=== PATIENT | male | born 1950 | race Caucasian/White ===

== ENCOUNTER 2020-05-13 13:03 | Outpatient (REF) | payer MEDICARE, OTHER, SELFPAY | END 2020-05-13 13:04 | disposition home or self-care (01) | LOC: HO.BBR 13:03 | PROVIDERS: PCP Internal Medicine; Visit Provider Internal Medicine Gastroenterology | DX: E83.110 Hereditary hemochromatosis (principal) | CPT/HCPCS: 99195 ==

== ENCOUNTER 2020-07-08 13:00 | Outpatient (REF) | payer MEDICARE, OTHER, SELFPAY | END 2020-07-08 13:01 | disposition home or self-care (01) | LOC: HO.BBR 13:00 | PROVIDERS: PCP Internal Medicine; Visit Provider Internal Medicine Gastroenterology | DX: Z13.89 Encounter for screening for other disorder (principal) ==

== ENCOUNTER 2020-07-08 13:42 | Outpatient (REF) | payer SELFPAY ==
[2020-07-08 14:42] LABS: Cholesterol 201 mg/dL
[2020-07-08 15:00] LABS: SARS COV2 IgG Negative (Negative)
== END 2020-07-08 13:43 | disposition home or self-care (01) ==
LOC: HO.LNC 13:42
PROVIDERS: Visit Provider Pathology Anatomic Pathology & Clinical Pathology
DX: Z20.828 Contact with and (suspected) exposure to other viral communicable diseases (principal)
CPT/HCPCS: 82465; 86769

== ENCOUNTER 2020-09-02 13:05 | Outpatient (REF) | payer MEDICARE, OTHER, SELFPAY | END 2020-09-02 13:06 | disposition home or self-care (01) | LOC: HO.BBR 13:05 | PROVIDERS: Visit Provider Internal Medicine Gastroenterology | DX: Z13.89 Encounter for screening for other disorder (principal) ==

== ENCOUNTER 2020-09-02 13:51 | Outpatient (REF) | payer SELFPAY ==
[2020-09-02 14:37] LABS: Cholesterol 186 mg/dL
== END 2020-09-02 13:52 | disposition home or self-care (01) ==
LOC: HO.LNC 13:51
PROVIDERS: Visit Provider Pathology Anatomic Pathology & Clinical Pathology
DX: Z13.89 Encounter for screening for other disorder (principal)
CPT/HCPCS: 36415; 82465

== ENCOUNTER 2020-10-28 13:01 | Outpatient (REF) | payer MEDICARE, OTHER, SELFPAY | END 2020-10-28 13:02 | disposition home or self-care (01) | LOC: HO.BBR 13:01 | PROVIDERS: PCP Internal Medicine; Visit Provider Internal Medicine Gastroenterology | DX: Z13.89 Encounter for screening for other disorder (principal) ==

== ENCOUNTER 2020-12-23 12:57 | Outpatient (REF) | payer MEDICARE, OTHER, SELFPAY | END 2020-12-23 12:58 | disposition home or self-care (01) | LOC: HO.BBR 12:57 | PROVIDERS: Visit Provider Internal Medicine Gastroenterology | DX: Z13.89 Encounter for screening for other disorder (principal) ==

== ENCOUNTER 2021-02-17 12:48 | Outpatient (REF) | payer MEDICARE, OTHER, SELFPAY | END 2021-02-17 12:49 | disposition home or self-care (01) | LOC: HO.BBR 12:48 | PROVIDERS: PCP Internal Medicine; Visit Provider Internal Medicine Gastroenterology | DX: Z13.89 Encounter for screening for other disorder (principal) ==

== ENCOUNTER 2021-04-15 12:10 | Outpatient (REF) | payer MEDICARE, OTHER, SELFPAY | END 2021-04-15 12:11 | disposition home or self-care (01) | LOC: HO.BBR 12:10 | PROVIDERS: Visit Provider Internal Medicine Gastroenterology | DX: Z13.89 Encounter for screening for other disorder (principal) ==

== ENCOUNTER 2021-06-10 12:03 | Outpatient (REF) | payer MEDICARE, OTHER, SELFPAY | END 2021-06-10 12:04 | disposition home or self-care (01) | LOC: HO.BBR 12:03 | PROVIDERS: PCP Internal Medicine; Visit Provider Internal Medicine Gastroenterology | DX: Z13.89 Encounter for screening for other disorder (principal) ==

== ENCOUNTER 2021-08-05 12:51 | Outpatient (REF) | payer MEDICARE, OTHER, SELFPAY | END 2021-08-05 12:52 | disposition home or self-care (01) | LOC: HO.BBR 12:51 | PROVIDERS: Visit Provider Internal Medicine Gastroenterology | DX: Z13.89 Encounter for screening for other disorder (principal) ==

== ENCOUNTER 2021-09-30 13:01 | Outpatient (REF) | payer MEDICARE, OTHER, SELFPAY | END 2021-09-30 13:02 | disposition home or self-care (01) | LOC: HO.BBR 13:01 | PROVIDERS: Visit Provider Internal Medicine Gastroenterology | DX: Z13.89 Encounter for screening for other disorder (principal) ==

== ENCOUNTER 2021-11-26 11:48 | Outpatient (REF) | payer MEDICARE, OTHER, SELFPAY | END 2021-11-26 11:49 | disposition home or self-care (01) | LOC: HO.BBR 11:48 | PROVIDERS: Visit Provider Internal Medicine Gastroenterology | DX: Z13.89 Encounter for screening for other disorder (principal) ==

== ENCOUNTER 2022-01-22 12:05 | Outpatient (REF) | payer MEDICARE, OTHER, SELFPAY | END 2022-01-22 12:06 | disposition home or self-care (01) | LOC: HO.BBR 12:05 | PROVIDERS: Visit Provider Internal Medicine Gastroenterology | DX: Z13.89 Encounter for screening for other disorder (principal) ==

== ENCOUNTER 2022-03-19 13:03 | Outpatient (REF) | payer MEDICARE, OTHER, SELFPAY | END 2022-03-19 13:04 | disposition home or self-care (01) | LOC: HO.BBR 13:03 | PROVIDERS: Visit Provider Internal Medicine Gastroenterology | DX: Z13.89 Encounter for screening for other disorder (principal) ==

== ENCOUNTER 2022-05-14 13:02 | Outpatient (REF) | payer MEDICARE, OTHER, SELFPAY | END 2022-05-14 13:03 | disposition home or self-care (01) | LOC: HO.BBR 13:02 | PROVIDERS: Visit Provider Internal Medicine Gastroenterology | DX: Z13.89 Encounter for screening for other disorder (principal) ==

== ENCOUNTER 2022-07-17 12:47 | Outpatient (REF) | payer MEDICARE, OTHER, SELFPAY | END 2022-07-17 12:48 | disposition home or self-care (01) | LOC: HO.BBR 12:47 | PROVIDERS: Visit Provider Internal Medicine Gastroenterology | DX: Z13.89 Encounter for screening for other disorder (principal) ==

== ENCOUNTER 2022-09-11 13:04 | Outpatient (REF) | payer MEDICARE, OTHER, SELFPAY | END 2022-09-11 13:05 | disposition home or self-care (01) | LOC: HO.BBR 13:04 | PROVIDERS: Visit Provider Internal Medicine Gastroenterology | DX: Z13.89 Encounter for screening for other disorder (principal) ==

== ENCOUNTER 2022-11-06 12:53 | Outpatient (REF) | payer MEDICARE, OTHER, SELFPAY | END 2022-11-06 12:54 | disposition home or self-care (01) | LOC: HO.BBR 12:53 | PROVIDERS: Visit Provider Internal Medicine Gastroenterology | DX: Z13.89 Encounter for screening for other disorder (principal) ==

== ENCOUNTER 2023-01-11 13:03 | Outpatient (REF) | payer MEDICARE, OTHER, SELFPAY | END 2023-01-11 13:04 | disposition home or self-care (01) | LOC: HO.BBR 13:03 | PROVIDERS: Visit Provider Internal Medicine Gastroenterology | DX: Z13.89 Encounter for screening for other disorder (principal) ==

== ENCOUNTER 2023-03-08 13:04 | Outpatient (REF) | payer MEDICARE, OTHER, SELFPAY | END 2023-03-08 13:05 | disposition home or self-care (01) | LOC: HO.BBR 13:04 | PROVIDERS: Visit Provider Internal Medicine Gastroenterology | DX: Z13.89 Encounter for screening for other disorder (principal) ==

== ENCOUNTER 2023-05-03 12:53 | Outpatient (REF) | payer MEDICARE, OTHER, SELFPAY | END 2023-05-03 12:54 | disposition home or self-care (01) | LOC: HO.BBR 12:53 | PROVIDERS: PCP Internal Medicine; Visit Provider Internal Medicine Gastroenterology | DX: Z13.89 Encounter for screening for other disorder (principal) ==

== ENCOUNTER 2023-06-28 13:20 | Outpatient (REF) | payer MEDICARE, OTHER, SELFPAY | END 2023-06-28 13:21 | disposition home or self-care (01) | LOC: HO.BBR 13:20 | PROVIDERS: PCP Internal Medicine; Visit Provider Internal Medicine Gastroenterology | DX: Z13.89 Encounter for screening for other disorder (principal) ==

== ENCOUNTER 2023-08-31 10:05 | Outpatient (REF) | payer MEDICARE, OTHER, SELFPAY | END 2023-08-31 10:06 | disposition home or self-care (01) | LOC: HO.BBR 10:05 | PROVIDERS: PCP Internal Medicine; Visit Provider Internal Medicine Gastroenterology | DX: Z13.89 Encounter for screening for other disorder (principal) ==

== ENCOUNTER 2023-10-26 12:48 | Outpatient (REF) | payer MEDICARE, OTHER, SELFPAY | END 2023-10-26 12:49 | disposition home or self-care (01) | LOC: HO.BBR 12:48 | PROVIDERS: PCP Internal Medicine; Visit Provider Internal Medicine Gastroenterology | DX: Z13.89 Encounter for screening for other disorder (principal) ==

== ENCOUNTER 2023-12-21 12:49 | Outpatient (REF) | payer MEDICARE, OTHER, SELFPAY | END 2023-12-21 12:50 | disposition home or self-care (01) | LOC: HO.BBR 12:49 | PROVIDERS: PCP Internal Medicine; Visit Provider Internal Medicine Gastroenterology | DX: Z13.89 Encounter for screening for other disorder (principal) ==

== ENCOUNTER 2024-02-15 12:55 | Outpatient (REF) | payer MEDICARE, OTHER, SELFPAY | END 2024-02-15 12:56 | disposition home or self-care (01) | LOC: HO.BBR 12:55 | PROVIDERS: PCP Internal Medicine; Visit Provider Internal Medicine Gastroenterology | DX: Z13.89 Encounter for screening for other disorder (principal) ==

== ENCOUNTER 2024-04-18 13:16 | Outpatient (REF) | payer MEDICARE, OTHER, SELFPAY | END 2024-04-18 13:17 | disposition home or self-care (01) | LOC: HO.BBR 13:16 | PROVIDERS: PCP Internal Medicine; Visit Provider Internal Medicine Gastroenterology | DX: Z13.89 Encounter for screening for other disorder (principal) ==

== ENCOUNTER 2024-06-13 12:56 | Outpatient (REF) | payer MEDICARE, OTHER, SELFPAY | END 2024-06-13 12:57 | disposition home or self-care (01) | LOC: HO.BBR 12:56 | PROVIDERS: PCP Internal Medicine; Visit Provider Internal Medicine Gastroenterology | DX: Z13.89 Encounter for screening for other disorder (principal) ==

== ENCOUNTER 2024-08-08 12:53 | Outpatient (REF) | payer MEDICARE, OTHER, SELFPAY | END 2024-08-08 12:54 | disposition home or self-care (01) | LOC: HO.BBR 12:53 | PROVIDERS: PCP Internal Medicine; Visit Provider Internal Medicine Gastroenterology | DX: Z13.89 Encounter for screening for other disorder (principal) ==

== ENCOUNTER 2024-10-03 13:11 | Outpatient (REF) | payer MEDICARE, OTHER, SELFPAY ==
--- OUTSIDE RECORDS SUMMARY | 2024-10-03 16:08 | XMS_ITS | Encounter Summary ---
Author Organization [facility] Address [address] [place] [address] Care Team Providers Care Soft Boarder Name Role Phone Tomy Bass MD Primary Care Provider [phone] Reason for Visit * Reason Comments Follow-up Encounter Details Date Type Department Care Team (Latest Contact Info) Description 09/12/2024 10:00 AM EST Office Visit Gastroenterology - [address] [phone] Gerald Chen MD [address] [address] Hereditary hemochromatosis (CMS/HCC) (Primary Dx); Inflammatory bowel diseases (IBD) Social History Tobacco Use Types Packs/Day Years Used Date Smoking Tobacco: Never Assessed Sex and Gender Information Value Date Recorded Sex Assigned at Not on file Legal Sex Male 2:45 AM EST Gender Identity Not on file Sexual Orientation Not on file documented as of this encounter Last Filed Vital Signs Vital Sign Reading Time Taken Comments Blood Pressure - - Pulse - - Temperature - - Respiratory Rate - - Oxygen Saturation - - Inhaled Oxygen Concentration - - Weight 87.1 kg (192 lb) 09/12/2024 10:02 AM EST Height 170.2 cm (5' 7 ) 09/12/2024 10:02 AM EST Body Mass Index 30.07 09/12/2024 10:02 AM EST documented in this encounter Progress Notes * Gerald Chen MD - 09/12/2024 10:00 AM EST PROGRESS NOTE Subjective Patient ID: Amaury Patton is a 74 y.o. male. No chief complaint on file. HPI History of Present Illness The patient is a 74-year-old male with a history of hemochromatosis, ulcerative colitis, skin cancer, and fluctuating PSA levels, presenting for a follow-up visit. Hemochromatosis - Undergoes periodic phlebotomies every 8 weeks - Last phlebotomy was on 06/13/2024 - Recent blood work showed an iron saturation of 32 and a hemoglobin level of 15 Ulcerative Colitis - Undergoes periodic colonoscopies - Last colonoscopy was in 07/2022 - Another colonoscopy discussed for 07/2025 due to longstanding history of colitis - Family history of colon cancer (mother, but in her 80's)) - Biopsies in 07/2022 were negative for colitis - Reports no current bleeding and no bleeding during biopsy procedures Skin Cancer - Sees Dr. Landaverde for this condition - Recently had a body scan and cosmetic procedures on his knees Fluctuating PSA Levels - Third biopsy in 06/2024 - Followed up with Dr. Lo at [facility] - Borderline between active surveillance and intervention - Presented with options: radiation therapy or prostate removal - Concerned about potential side effects of radiation therapy, particularly its impact on the anus - Informed about protective measures for the anus, but effectiveness is uncertain - Surgeon and Dr. Monge indicated condition cannot be resolved - If undecided, Dr. Lo will make the decision - Apprehensive about undergoing radiation therapy - MRI results unchanged from the previous year - Upcoming appointment with Dr. Mario Alberto Castañeda at the [facility] to discuss radiation therapy Supplemental information: He saw Dr. Monge on , who did blood work. He went to the dentist for his annual check-up. He sees Dr. Monge twice a year and will see him again in 3 months because he just started taking atorvastatin. He was told that he has a 21% chance of getting a heart attack someday according to his cholesterol. He was put on atorvastatin. His glucose is 88. FAMILY HISTORY - Mother of colon cancer at age 86 - Brother had colon cancer MEDICATIONS - Atorvastatin (current) IMMUNIZATIONS He has been vaccinated for type A and B hepatitis. Results Laboratory Studies Iron saturation was 78 and ferritin was 59 in August 2023. LFTs were completely normal. Hemoglobinwas 15. Glucose is 88. Testing Biopsies throughout colon were negative for any colitis in 07/2022. Social History Socioeconomic History Marital status: Single Spouse name: Not on file Number of children: Not on file Years of education: Not on file Highest education level: Not on file Occupational History Not on file Tobacco Use Smoking status: Not on file Smokeless tobacco: Not on file Substance and Sexual Activity Alcohol use: Not on file Drug use: Not on file Sexual activity: Not on file Other Topics Concern Not on file Social History Narrative Not on file No past medical history on file. No past surgical history on file. Review of Systems Objective Physical Exam Assessment/Plan Assessment & Plan Hemochromatosis: - Undergoing periodic phlebotomies every 8 weeks - Last iron studies (August 2023): saturation 78, ferritin 59, normal LFTs - Continue current phlebotomy schedule - Re-evaluate iron levels in 6 months to prevent potential anemia Ulcerative colitis: - Periodic colonoscopies, last in July 2022 showing no signs of colitis - Family history of colon cancer - Colonoscopy rescheduled to July 2025 based on new guidelines - Pre-radiation examination if opting for radiation therapy to assess for inflammation Prostate cancer: - Borderline between active surveillance and intervention - Options: radiation therapy or prostate removal - Discussed concerns: radiation proctitis, surgical risks (impotence, urinary dribbling) - Will consult with radiologist and surgeon to make an informed decision Hyperlipidemia: - Prescribed atorvastatin to lower cholesterol and reduce risk of heart attack and stroke - Reports no significant side effects Skin cancer: - History of skin cancer - Continues regular check-ups and treatments with Dr. Landaverde PROCEDURE Colonoscopy in 07/2022 with biopsies throughout the colon was negative for any colitis. Last Recorded Vitals: There were no vitals taken for this visit. Labs: No results found for: WBC , HGB , HCT , MCV , PLT No results found for: NA , K , CL , CO2 , BUN , CREATININE , CALCIUM , PROT , BILITOT , ALKPHOS , ALT , AST , GLUCOSE No results found for: WOUNDCX , BLOODCX , URINECX , CSFCX , AFBCX , MRSA Pertinent new radiology results/studies: No image results found. MEDICATIONS: Current Hospital Medications: No current outpatient medications on file. Home Medications: He is not on any long-term medications. There is no problem list on file for this patient. Gerald Chen MD 12:54 PM EST documented in this encounter Plan of Treatment Upcoming Encounters Date Type Department Care Team (Latest Contact Info) Description 12/11/2024 7:30 AM EDT Hospital Encounter [facility] OR [address] [place] [phone] Jeff Jovel MD [address] [place] [address] [place] [phone] 12/11/2024 7:30 AM EDT - 12/11/2024 11:30 AM EDT Surgery [facility] OR [address] [place] [phone] Jeff Jovel MD [address] [place] [address] DAVINCI ASSISTED LAPAROSCOPIC PROSTATECTOMY, ?BILATERAL PELVIC LYMPH NODE DISSECTION [38607 (CPT??)] Scheduled Orders Name Type Priority Associated Diagnoses Orde r Schedule CBC and differential Lab Routine Hereditary hemochromatosis (CMS/HCC) Expected: 03/12/2025, Expires: 09/12/2025 Iron and TIBC Lab Routine Hereditary hemochromatosis (CMS/HCC) Expected: 03/12/2025, Expires: 09/12/2025 Ferritin Lab Routine Hereditary hemochromatosis (CMS/HCC) Expected: 03/12/2025, Expires: 09/12/2025 Scheduled Procedures Name Priority Associated Diagnoses Date/Ti me PROSTATECTOMY ROBOT Malignant neoplasm of prostate (CMS/HCC) 12/11/2024 7:30 AM EDT documented as of this encounter Visit Diagnoses Diagnosis Hereditary hemochromatosis (CMS/HCC)- Primary Hereditary hemochromatosis Inflammatory bowel diseases (IBD) Malignant neoplasm of prostate (CMS/HCC) Malignant neoplasm of prostate documented in this encounter Historical Medications * This list may reflect changes made after this encounter. desonide (DESOWEN) 0.05 % cream APPLY SPARINGLY TWICE A DAY FOR DERMATITIS ON NECK 12/04/2023 losartan (COZAAR) 50 mg tablet Take 1 tablet (50 mg total) by mouth 1 (one) time each day. for 90 days 07/18/2024 hydrocortisone (ANUSOL-HC) 25 mg suppository INSERT 1 SUPPOSITORY INTO RECTUM TWICE A DAY DIRECTED 10/11/2023 timolol (TIMOPTIC) 0.5 % ophthalmic solution INSTILL 1 DROP INTO BOTH EYES EVERY MORNING 07/10/2024 mometasone (ELOCON) 0.1 % topical solution APPLY TO AFFECTED AREAS DIRECTED 01/12/2024 ciprofloxacin (CIPRO) 500 mg tablet TAKE 1 TABLET BY MOUTH 1 HOUR BEFORE PROCEDURE & 1 TAB 10 HOURS AFTER 07/20/2024 atorvastatin (LIPITOR) 10 mg tablet Take 1 tablet (10 mg total) by mouth 1 (one) time each day. for 90 days 09/08/2024 added in this encounter Care Teams Soft Boarder Relationship Specialty Start Date End Date Tomy Bass MD [address] [place] [address] PCP - General Internal Medicine 06/07/24 documented as of this encounter
--- OUTSIDE RECORDS SUMMARY | 2024-10-03 16:09 | XMS_ITS | Encounter Summary ---
Author Organization [facility] Address [address] [place] [address] Care Team Providers Care Channel Machine Operator Name Role Phone Tomy Bass MD Primary Care Provider Encounter Details Date Type Department Care Team (Late st Contact Info) Description 07/31/2024 Lab Requisition [facility] [address] [facility] [place] [phone] Levon Guerra MD [address] [phone] Malignant neoplasm of prostate (CMS/HCC) Social History Tobacco Use Types Packs/Day Years Used Date Smoking Tobacco: Never Assessed Sex and Gender Information Value Date Recorded Sex Assigned at Not on file Legal Sex Male 2:45 AM EST Gender Identity Not on file Sexual Orientation Not on file documented as of this encounter Plan of Treatment Upcoming Encounters Date Type Department Care Team (Latest Contact Info) Description 12/11/2024 7:30 AM EDT Hospital Encounter [facility] OR [address] [place] [phone] Jeff Jovel MD [address] [place] [address] [place] [phone] 12/11/2024 7:30 AM EDT - 12/11/2024 11:30 AM EDT Surgery [facility] OR [address] [place] [phone] Jeff Jovel MD [address] [place] [address] [place] [address] DAVINCI ASSISTED LAPAROSCOPIC PROSTATECTOMY, ?BILATERAL PELVIC LYMPH NODE DISSECTION [55387 (CPT??)] Scheduled Procedures Name Priority Associated Diagnoses Date/Ti me PROSTATECTOMY ROBOT Malignant neoplasm of prostate (CMS/HCC) 12/11/2024 7:30 AM EDT documented as of this encounter Procedures Procedure Name Priority Date/Time Associated Diagnosis Comments AP OUTSIDE CONSULT Routine 07/28/2024 Malignant neoplasm of prostate (CMS/HCC) documented in this encounter Results * Anatomic pathology outside consult (07/28/2024) Final Diagnosis A. Prostate, Left Middle [place] (Core Biopsy): -PROSTATIC ACINAR ADENOCARCINOMA -Landon Score: (3 + 3) = 6, Grade Group 1 Percent of Prostatic Tissue Continuously Involved by Tumor: 15% B. Prostate, Left Lateral [place] (Core Biopsy): - Benign prostate tissue. C. Prostate, Left Middle Middle (Core Biopsy): - Benign prostate tissue. D. Prostate, Left Lateral Middle (Core Biopsy): - Benign prostate tissue. E. Prostate, Left Middle Base (Core Biopsy): - Benign prostate tissue. F. Prostate, Left Lateral Base (Core Biopsy): - Benign prostate tissue. G. Prostate, Right Middle [place] (Core Biopsy): -PROSTATIC ACINAR ADENOCARCINOMA -Dumas Score: (3 + 4) = 7, Grade Group 2 -Percentage Pattern: 4:10% Percent of Prostatic Tissue Continuously Involved by Tumor: 25% H. Prostate, Right Lateral [place] (Core Biopsy): - Benign prostate tissue. I. Prostate, Right Middle Middle (Core Biopsy): -PROSTATIC ACINAR ADENOCARCINOMA -Landon Score: (3 + 4) = 7, Grade Group 2 -Percentage Pattern: 4:5% Percent of Prostatic Tissue Continuously Involved by Tumor: 75% J. Prostate, Right Lateral Middle (Core Biopsy): -PROSTATIC ACINAR ADENOCARCINOMA -Dumas Score: (3 + 4) = 7, Grade Group 2 -Percentage Pattern: 4:10% Percent of Prostatic Tissue Discontinuously Involved by Tumor: 55% K. Prostate, Right Middle Base (Core Biopsy): - Benign prostate tissue. L. Prostate, Right Lateral Base (Core Biopsy): - Benign prostate tissue. M. Prostate, MPZ Lesion #1 (Core Biopsy): - Benign prostate tissue. N. Prostate, MPZ Lesion #2 (Core Biopsy): - Benign prostate tissue. 08/03/2024 11:37 AM [facility] Clinical Information Elevated PSA = 11.5 (07/10/2024) [id number] 08/03/2024 11:37 AM [facility] Gross Description A. Prostate, Left Middle [place] Biopsy: Received, properly labeled, are two H and E stained slides and two unstained slides. B. Prostate, Left Lateral [place] Biopsy: Received, properly labeled, are two H and E stained slides and two unstained slides. C. Prostate, Left Middle Middle Biopsy: Received, properly labeled, are two H and E stained slides and two unstained slides. D. Prostate, Left Lateral Middle Biopsy: Received, properly labeled, are two H and E stained slides and two unstained slides. E. Prostate, Left Middle Base Biopsy: Received, properly labeled, are two H and E stained slides and two unstained slides. F. Prostate, Left Lateral Base Biopsy: Received, properly labeled, are two H and E stained slides and two unstained slides. G. Prostate, Right Middle [place] Biopsy: Received, properly labeled, are two H and E stained slides and two unstained slides. H. Prostate, Right Lateral [place] Biopsy: Received, properly labeled, are two H and E stained slides and two unstained slides. I. Prostate, Right Middle Middle Biopsy: Received, properly labeled, are two H and E stained slides and two unstained slides. J. Prostate, Right Lateral Middle Biopsy: Received, properly labeled, are two H and E stained slides and two unstained slides. K. Prostate, Right Middle Base Biopsy: Received, properly labeled, are two H and E stained slides and two unstained slides. L. Prostate, Right Lateral Base Biopsy: Received, properly labeled, are two H and E stained slides and two unstained slides. M. Prostate, MPZ Lesion #1 Biopsy: Received, properly labeled, are two H and E stained slides and two unstained slides. N. Prostate, MPZ Lesion #2 Biopsy: Received, properly labeled, are two H and E stained slides and two unstained slides. /al 08/03/2024 11:37 AM EST [facility] Disclaimer Unless otherwise specified, all tissue is 10% NB formalin fixed and paraffin embedded. Technical pathology services provided by [facility] [address] [facility] [address] [place] [address] (CLIA #[id number]/Blanca Hoyt MD, Copra Sampler) 08/03/2024 11:37 AM EST [facility] Tissue Prostatic structure / Unknown 07/28/2024 07/31/2024 4:36 PM EST Tissue specimen (specimen) Prostatic structure / Unknown 07/28/2024 07/31/2024 4:36 PM EST Tissue specimen (specimen) Prostatic structure / Unknown 07/28/2024 07/31/2024 4:36 PM EST Tissue specimen (specimen) Prostatic structure / Unknown 07/28/2024 07/31/2024 4:36 PM EST Tissue specimen (specimen) Prostatic structure / Unknown 07/28/2024 07/31/2024 4:36 PM EST Tissue specimen (specimen) Prostatic structure / Unknown 07/28/2024 07/31/2024 4:36 PM EST Tissue specimen (specimen) Prostatic structure / Unknown 07/28/2024 07/31/2024 4:36 PM EST Tissue specimen (specimen) Prostatic structure / Unknown 07/28/2024 07/31/2024 4:36 PM EST Tissue specimen (specimen) Prostatic structure / Unknown 07/28/2024 07/31/2024 4:36 PM EST Tissue specimen (specimen) Prostatic structure / Unknown 07/28/2024 07/31/2024 4:36 PM EST Tissue specimen (specimen) Prostatic structure / Unknown 07/28/2024 07/31/2024 4:36 PM EST Tissue specimen (specimen) Prostatic structure / Unknown 07/28/2024 07/31/2024 4:36 PM EST Tissue specimen (specimen) Prostatic structure / Unknown 07/28/2024 07/31/2024 4:36 PM EST Tissue specimen (specimen) Prostatic structure / Unknown 07/28/2024 07/31/2024 4:36 PM EST us Levon Guerra MD LAB PATHOLOGY ORDERABLES Final Result [facility] [address] [place] [address], documented in this encounter Visit Diagnoses Diagnosis Malignant neoplasm of prostate (CMS/HCC) Malignant neoplasm of prostate Malignant neoplasm of prostate (CMS/HCC) Malignant neoplasm of prostate documented in this encounter Care Teams Channel Machine Operator Relationship Specialty Start Date End Date Tomy Bass MD [address] [place] [address] PCP - General Internal Medicine 06/07/24 documented as of this encounter
--- OUTSIDE RECORDS SUMMARY | 2024-10-03 16:09 | XMS_ITS | Continuity of Care Document ---
Author Organization [facility] Address [address] [place] [phone] Care Team Providers Care Environmental Planner Name Role Phone Shelia NEELY, Tomy Barcenas Primary Care Physician Encounter [facility] Date(s): 08/25/24 - 09/24/24 [facility] [address] [place] [address] Attending Physician: Ethan Dubon Admitting Physician: Ethan Dubon Referring Physician: Admtr [id number] Encounter Type: Triage Allergies, Adverse Reactions, Alerts Substance Criticality Severity Reaction Reaction Severity Status penicillins rash Active Nuts cashews - GI problems Active Medications atorvastatin 10 mg oral tablet 1 tablet = 10 mg, By Mouth, Daily, 0 Refills, Maintenance, 09/19/24 9:20:00 AM EST, Partial fill upon patient request if the prescription is for a schedule II opioid drug. Start Date: 09/19/24 Status: Ordered Repeat number: 1 Losartan = 50 mg, By Mouth, Daily, 0 Refills, Maintenance, 09/19/24 9:19:00 AM EST, Partial fill upon patientrequest if the prescription is for a schedule II opioid drug. Start Date: 09/19/24 Status: Ordered Repeat number: 1 Timolol 0.5% Ophth 1 drop, Eyes, Both, Daily, Refills 0, Maintenance, 09/19/24 9:19:00 AM EST, Partial fill upon patient request if the prescription is for a schedule II opioid drug. Start Date: 09/19/24 Status: Ordered Repeat number: 1 Social History Social History Type Response Smoking Status Never (less than 100 in lifetime) entered on: 09/19/24 Sex Sex Representation Male (finding) Patient Care team information Care Team Personnel Name: Shelia NEELY, Tomy Barcenas Position: [facility] Physician - Primary Care Member Role: PCP Address: [address] [place] [address] Telecom: Care Team Related Persons Name: BETO CERVANTES Insurance Providers Guarantor name: RADHA CERVANTES Health Plan Information #: 1 Payer: MEDICARE PART B OUTPT Member Number: NA Policy Number: NA Group Number: NA Health Plan Information #: 2 Payer: [facility] Member Number: NA Policy Number: NA Group Number: NA
--- OUTSIDE RECORDS SUMMARY | 2024-10-03 16:09 | XMS_ITS | Clinical Summary ---
Author Organization [facility] Address [address] [place] [phone] Phone Care Team Providers Care Locomotive Crane Operator Helper Name Role Phone Toym Bass MD Primary Care Provider [phone] Allergies Active Allergy Reactions Criticality Noted Date Comments Food Allergy Formula 09/12/2024 Cashews Penicillins 09/12/2024 Medications atorvastatin (LIPITOR) 10 mg tablet Take 1 tablet (10 mg total) by mouth 1 (one) time each day. for 90 days 5 Active ciprofloxacin (CIPRO) 500 mg tablet TAKE 1 TABLET BY MOUTH 1 HOUR BEFORE PROCEDURE & 1 TAB 10 HOURS AFTER 4 Active mometasone (ELOCON) 0.1 % topical solution APPLY TO AFFECTED AREAS DIRECTED 4 Active timolol (TIMOPTIC) 0.5 % ophthalmic solution INSTILL 1 DROP INTO BOTH EYES EVERY MORNING 4 Active hydrocortisone (ANUSOL-HC) 25 mg suppository INSERT 1 SUPPOSITORY INTO RECTUM TWICE A DAY DIRECTED 4 Active losartan (COZAAR) 50 mg tablet Take 1 tablet (50 mg total) by mouth 1 (one) time each day. for 90 days 4 Active desonide (DESOWEN) 0.05 % cream APPLY SPARINGLY TWICE A DAY FOR DERMATITIS ON NECK 4 Active Active Problems Problem Noted Date Diagnosed Date Hemochromatosis 09/06/2024 Inflammatory bowel diseases (IBD) 09/06/2024 Encounters Date Type Department Care Team Description 09/12/2024 10:00 AM EST Office Visit Gastroenterology - [address] [phone] Gerald Chen MD Hereditary hemochromatosis (CMS/HCC) (Primary Dx); Inflammatory bowel diseases (IBD) 07/31/2024 Lab Requisition [facility] 299 [facility] [place] [phone] Levon Guerra MD Malignant neoplasm of prostate (CMS/HCC) from Last 3 Months Social History Tobacco Use Types Packs/Day Years Used Date Smoking Tobacco: Never Assessed Sex and Gender Information Value Date Recorded Sex Assigned at Not on file Legal Sex Male 2:45 AM EST Gender Identity Not on file Sexual Orientation Not on file Last Filed Vital Signs Vital Sign Reading Time Taken Comments Blood Pressure - - Pulse - - Temperature - - Respiratory Rate - - Oxygen Saturation - - Inhaled Oxygen Concentration - - Weight 87.1 kg (192 lb) 09/12/2024 10:02 AM EST Height 170.2 cm (5' 7 ) 09/12/2024 10:02 AM EST Body Mass Index 30.07 09/12/2024 10:02 AM EST Plan of Treatment Upcoming Encounters Date Type Department Care Team (Latest Contact Info) Description 12/11/2024 7:30 AM EDT Hospital Encounter [address] [phone] Jeff Jovel MD [address] [id number] 12/11/2024 7:30 AM EDT - 12/11/2024 11:30 AM EDT Surgery [address] [phone] Jeff Jovel MD [address] [phone] [facility] ASSISTED LAPAROSCOPIC PROSTATECTOMY, ?BILATERAL PELVIC LYMPH NODE DISSECTION [91648 (CPT??)] Scheduled Procedures Name Priority Associated Diagnoses Date/Ti me PROSTATECTOMY ROBOT Malignant neoplasm of prostate (CMS/HCC) 12/11/2024 7:30 AM EDT Health Maintenance Due Date Last Done Comments Abdominal Aortic Aneurysm (AAA) Screen 02/29/2024 Cholesterol Screening (Lipid Panel) 02/29/2024 Colorectal Cancer Screening: Colonoscopy 02/29/2024 Depression Screening 02/29/2024 Falls Risk Assessment 02/29/2024 Hepatitis C Screening 02/29/2024 Medicare Annual Wellness Visit 02/29/2024 Social Influencers of Health Screening 02/29/2024 DTaP,Tdap,and Td Vaccines (2 - Td or Tdap) 05/10/2025 05/10/2015 Zoster Vaccines Completed 08/05/2020, 03/2020, 05/19/2016 RSV Immunization Patients 60+ Years Old Completed 05/11/2023 COVID-19 Vaccine Completed 2024, , 06/01/2022, Additional history exists Influenza Vaccine Completed 2024, , 06/01/2022, Additional history exists Pneumococcal Vaccine: 50+ Years Completed 09/08/2024, 06/04/2017, 07/16/2015 HIB Vaccines Aged Out No longer eligi ble based on patient's age to complete this topic HPV Vaccines Aged Out No longer eligi ble based on patient's age to complete this topic Hepatitis A Vaccines Aged Out No long er eligible based on patient's age to complete this topic Hepatitis B Vaccines Aged Out No long er eligible based on patient's age to complete this topic IPV Vaccines Aged Out No longer eligi ble based on patient's age to complete this topic MMR Vaccines Aged Out No longer eligi ble based on patient's age to complete this topic Meningococcal ACWY Vaccine Aged Out N o longer eligible based on patient's age to complete this topic Meningococcal B Vacine Aged Out No lo nger eligible based on patient's age to complete this topic RSV Immunization Patients Under 20 months Aged Out No longer eligible based on patient's age to complete this topic Varicella Vaccines Aged Out No longer eligible based on patient's age to complete this topic Procedures Procedure Name Priority Date/Time Associated Diagnosis Comments EXTERNAL CLINICAL LAB 08/09/2024 AP OUTSIDE CONSULT Routine 07/28/2024 Malignant neoplasm of prostate (CMS/HCC) from Last 3 Months Results * External clinical lab (08/09/2024) Provider [facility] BLOOD ORDERABLES Fin al Result * Anatomic pathology outside consult (07/28/2024) Final Diagnosis A. Prostate, Left [place] (Core Biopsy): -PROSTATIC ACINAR ADENOCARCINOMA -Landon Score: (3 + 3) = 6, Grade Group 1 Percent of Prostatic Tissue Continuously Involved by Tumor: 15% B. Prostate, Left Lateral [place] (Core Biopsy): - Benign prostate tissue. C. Prostate, Left Middle Middle (Core Biopsy): - Benign prostate tissue. D. Prostate, Left Lateral Middle (Core Biopsy): - Benign prostate tissue. E. Prostate, Left Middle [place] (Core Biopsy): - Benign prostate tissue. F. Prostate, Left Lateral Base (Core Biopsy): - Benign prostate tissue. G. Prostate, Right [place] (Core Biopsy): -PROSTATIC ACINAR ADENOCARCINOMA -Landon Score: (3 + 4) = 7, Grade Group 2 -Percentage Pattern: 4:10% Percent of Prostatic Tissue Continuously Involved by Tumor: 25% H. Prostate, Right Lateral [place] (Core Biopsy): - Benign prostate tissue. I. Prostate, Right Middle Middle (Core Biopsy): -PROSTATIC ACINAR ADENOCARCINOMA -Landon Score: (3 + 4) = 7, Grade Group 2 -Percentage Pattern: 4:5% Percent of Prostatic Tissue Continuously Involved by Tumor: 75% J. Prostate, Right Lateral Middle (Core Biopsy): -PROSTATIC ACINAR ADENOCARCINOMA -Orient Score: (3 + 4) = 7, Grade [...] - Benign prostate tissue. 08/03/2024 11:37 AM [facility] Clinical Information Elevated PSA = 11.5 (07/10/2024) [id number] 08/03/2024 11:37 AM [facility] Gross Description A. Prostate, Left [place] Biopsy: Received, properly labeled, are two H and E stained slides and two unstained slides. B. Prostate, Left Lateral [place] Biopsy: Received, properly labeled, are two H [...] two unstained slides. G. Prostate, Right [place] Biopsy: Received, properly labeled, are two H and E stained slides and two unstained slides. H. Prostate, Right Lateral [place] Biopsy: Received, properly labeled, are two H [...] two unstained slides. /al 08/03/2024 11:37 AM [facility] Disclaimer Unless otherwise specified, all tissue is 10% NB formalin fixed and paraffin embedded. Technical pathology services provided by [facility] at [address] [place] [address] [address], [place] [address] (CLIA #[id number]/Blanca Hoyt MD, Clinical Haematologist) 08/03/2024 11:37 AM [facility] Tissue Prostatic structure / Unknown [...] Guerra MD LAB PATHOLOGY ORDERABLES Final Result [facility] [address] [place] [address], from Last 3 Months Insurance MEDICARE [facility] Care Teams Locomotive Crane Operator Helper Relationship Specialty Start Date End Date Tomy Bass MD [address] [place] [phone] PCP - General Internal Medicine 06/07/24
== END 2024-10-03 13:12 | disposition home or self-care (01) ==
LOC: HO.BBR 13:11
PROVIDERS: PCP Internal Medicine; Visit Provider Internal Medicine Gastroenterology
DX: Z13.89 Encounter for screening for other disorder (principal)

== ENCOUNTER 2025-01-24 13:16 | Outpatient (REF) | payer MEDICARE, OTHER, SELFPAY ==
--- OUTSIDE RECORDS SUMMARY | 2025-01-24 15:08 | XMS_ITS | Encounter Summary ---
Author Organization [facility] Address [address] [place] [address] Care Team Providers Care Anatomical Embalmer Name Role Phone Tomy Bass MD Primary Care Provider [phone] Encounter Details Date Type Department Care Team (Late st Contact Info) Description 11/24/[address] [facility] 299 [facility] [place] [phone] Jeff Jovel MD [address] [place] [address] Malignant neoplasm of prostate (CMS/HCC V24, CMS/HCC V28); Urinary tract infection, site not specified Social History Tobacco Use Types Packs/Day Years Used Date Smoking Tobacco: Never Assessed Sex and Gender Information Value Date Recorded Sex Assigned at Male 12/07/2024 8:11 AM EDT Legal Sex Male 2:45 AM EST Gender Identity Not on file Sexual Orientation Not on file documented as of this encounter Plan of Treatment Not on file documented as of this encounter Procedures Procedure Name Priority Date/Time Associated Diagnosis Comments CULTURE URINE Routine 11/24/2024 12:00 AM EDT Malignant neoplasm of prostate (CMS/HCC V24, CMS/HCC V28) Urinary tract infection, site not specified documented in this encounter Results * Culture urine (11/24/2024 12:00 AM EDT) Culture, Urine No growth 11/25/2024 1:05 PM EDT [facility] Urine Urine specimen obtained by clean catch procedure / Unknown 11/24/2024 11/24/2024 6:36 PM EDT us Jeff Jovel MD LAB MICROBIOLOGY - GENERAL ORDERABLES Final Result [facility] [address] [place] [address], documented in this encounter Visit Diagnoses Diagnosis Malignant neoplasm of prostate (CMS/HCC V24, CMS/HCC V28) Malignant neoplasm of prostate Urinary tract infection, site not specified documented in this encounter Care Teams Anatomical Embalmer Relationship Specialty Start Date End Date Tomy Bass MD [address] [place] [phone] PCP - General Internal Medicine 06/07/24 documented as of this encounter
== END 2025-01-24 13:17 | disposition home or self-care (01) ==
LOC: HO.BBR 13:16
PROVIDERS: PCP Internal Medicine; Visit Provider Internal Medicine Gastroenterology
DX: Z13.89 Encounter for screening for other disorder (principal)

== ENCOUNTER 2025-03-21 13:05 | Outpatient (REF) | payer MEDICARE, OTHER, SELFPAY ==
--- OUTSIDE RECORDS SUMMARY | 2025-03-21 13:39 | XMS_ITS | Encounter Summary ---
Author Organization [facility] Address [address] [place] [address] Care Team Providers Care Bonsai Tender Name Role Phone Tomy Bass MD Primary Care Provider Encounter Details Date Type Department Care Team (Late st Contact Info) Description 11/24/2024 Lab Requisition [facility] - Main Lab 299 [facility] [place] [phone] Jeff Jovel MD [address] [place] [address] Malignant neoplasm of prostate (CMS/HCC V24, CMS/HCC [...] Result [facility] [address] [place] [address], documented in this encounter Visit Diagnoses Diagnosis Malignant neoplasm of prostate (CMS/HCC V24, CMS/HCC V28) Malignant neoplasm of prostate Urinary tract infection, site not specified documented in this encounter Care Teams Bonsai Tender Relationship Specialty Start Date End Date Tomy Bass MD [address] [place] [phone] PCP - General Internal Medicine 06/07/24 documented as of this encounter
== END 2025-03-21 13:06 | disposition home or self-care (01) ==
LOC: HO.BBR 13:05
PROVIDERS: PCP Internal Medicine; Visit Provider Internal Medicine Gastroenterology
DX: Z13.89 Encounter for screening for other disorder (principal)

== ENCOUNTER 2025-05-17 12:58 | Outpatient (REF) | payer MEDICARE, OTHER, SELFPAY | END 2025-05-17 12:59 | disposition home or self-care (01) | LOC: HO.BBR 12:58 | PROVIDERS: PCP Internal Medicine; Visit Provider Internal Medicine Gastroenterology | DX: Z13.89 Encounter for screening for other disorder (principal) ==